=== PATIENT | female | born 1945 | race Two or more races ===

== ENCOUNTER 2022-04-19 22:27 | Emergency (ER) | payer MEDICARE, MEDICAID ==
[2022-04-19] MEDS ORDERED: Nitroglycerin 0.4 MG Tab.SL SL STA (23:19)
[2022-04-19 23:28] LABS: ESTIMATED GFR 31 mL/min (>60)
[2022-04-19] MEDS ORDERED: Lactated Ringers 1,000 ML IV ONE (23:30)
[2022-04-20] MEDS ORDERED: Morphine 4 MG/ML Syringe IVPUSH ONE ×2 (01:04→05:49)
[2022-04-20] MEDS ORDERED: Albuterol 0.083% 2.5 MG/3 ML Neb Soln NEB ONE ×2 (02:56→03:18)
[2022-04-20] MEDS ORDERED: Sodium Chloride 0.9% 10 ML Syringe FLUSH PRN (05:21)
[2022-04-20] MEDS ORDERED: Iopamidol 755 Mg/ML 100 ML Bottle IVPUSH ONE (05:21)
[2022-04-20] MEDS ORDERED: Sodium Chloride 0.9% 100 ML IV SCH (05:30)
[2022-04-20] MEDS ORDERED: Furosemide 40 MG/4 ML VIAL IVPUSH ONE (06:13)
[2022-04-20] MEDS ORDERED: Nitroglycerin 0.4 MG Tab.SL SL ONE (07:37)
[2022-04-20] MEDS ORDERED: Lactated Ringers 1,000 ML IV SCH (07:45)
[2022-04-20] MEDS ORDERED: Albuterol/Ipratropium 3.0-0.5 MG/3 ML Neb Soln NEB ONE (07:49)
== END 2022-04-20 09:45 ==
LOC: JD.ED 22:27
DX: K74.60 Unspecified cirrhosis of liver (principal); E11.22 Type 2 diabetes mellitus with diabetic chronic kidney disease; I13.0 Hypertensive heart and chronic kidney disease with heart failure and stage 1 through stage 4 chronic kidney disease, or unspecified chronic kidney disease; N18.9 Chronic kidney disease, unspecified; I50.9 Heart failure, unspecified; R09.02 Hypoxemia; Z20.822 Contact with and (suspected) exposure to COVID-19
CPT/HCPCS: 36415; 71045; 71275; 80053; 83735; 83880; 84484; 85025; 85379; 85610; 93005; 94640; 96361; 96374; 96375; 96376; 99285; A9270; J1940; J2270; J3490; J7120; Q9967; U0002; J7620-GY

== ENCOUNTER 2022-07-01 15:53 | Emergency (ER) | payer MEDICARE, MEDICAID ==
[2022-07-01 18:11] LABS: ESTIMATED GFR 43 mL/min (>60)
[2022-07-01] MEDS ORDERED: Iopamidol 612 MG/ML 100 ML Bottle IVPUSH ONE (18:42)
== END 2022-07-01 22:05 | disposition home or self-care (01) ==
LOC: JD.ED 15:53
DX: L76.82 Other postprocedural complications of skin and subcutaneous tissue (principal); I10 Essential (primary) hypertension; E11.9 Type 2 diabetes mellitus without complications; E66.9 Obesity, unspecified; Z68.41 Body mass index [BMI] 40.0-44.9, adult; Z79.899 Other long term (current) drug therapy
CPT/HCPCS: 36415; 72132; 80053; 85025; 86140; 99284; Q9967